=== PATIENT | male | born 1980 | race Caucasian/White ===

== ENCOUNTER → 2017-01-16 | Outpatient (CLI) | payer OTHER ==
[2017-01-16 12:35] LABS: HEMATOCRIT 41.8 % (42-52); MEAN CELL VOLUME 91.1 fL (80-100); MEAN CORPUSCULAR HEMOGLOBIN 31.6 pg (25-34); MEAN CORPUSCULAR HGB CONC 34.7 g/dl (32-36); MEAN PLATELET VOLUME 9.6 fL (7.4-10.4); PLATELET COUNT 290 K/uL (130-400); RED BLOOD COUNT 4.59 M/uL (4.7-6.1); WHITE BLOOD COUNT 4.48 K/uL (4.8-10.8)
[2017-01-16 13:14] LABS: COMPLETE YES; EOSINOPHIL % 3.5 %; LYMPH ABS # 2.02 K/uL (1.2-3.4); LYMPHOCYTE % 45.2 %; NEUTROPHILS % 29.2 %; VARIANT LYM ABS # 0.52 K/uL; VARIANT LYMPHOCYTE % 11.5 %
[2017-01-16 17:29] LABS: ALT/SGPT 50 U/L (12-78); AST/SGOT 37 U/L (15-37); BLOOD UREA NITROGEN 7 mg/dl (7-18); BUN/CREATININE RATIO 6.8 (10-20); CALCIUM 8.6 mg/dl (8.5-10.1); CARBON DIOXIDE 30 mmol/L (21-32); CHLORIDE 101 mmol/L (98-107); GLUCOSE 92 mg/dl (70-99); POTASSIUM 4.1 mmol/L (3.5-5.1); SODIUM 138 mmol/L (136-145)
[2017-01-16 17:31] LABS: ALB/GLOB RATIO 1.3 (0.9-2); ALKALINE PHOSPHATASE 50 U/L (45-117)
[2017-01-17 17:15] LABS: BEEF CLASS 0/1; CHOCOLATE CLASS 0; CHOCOLATE IGE <0.10 KU/L; CLAM CLASS 0; CLAM IGE <0.10 KU/L; CORN CLASS 0; CORN IGE <0.10 KU/L; CRAB CLASS 0; CRAB IGE <0.10 KU/L; EGG MIX CLASS 0; EGG MIX IGE <0.10 KU/L; LOBSTER CLASS 0; LOBSTER IGE <0.10 KU/L; PEANUT IGE <0.10 KU/L; PORK CLASS 0; PORK IGE <0.10 KU/L; SHRIMP CLASS 0; SOY CLASS 0; SOY IGE <0.10 KU/L; WHEAT CLASS 0; WHEAT IGE <0.10 KU/L
== END | disposition home or self-care (01) ==
LOC: C.LAB1850 11:36
PROVIDERS: ATTEND Internal Medicine Pulmonary Disease
DX: L50.1 Idiopathic urticaria (principal); L50.3 Dermatographic urticaria

== ENCOUNTER → 2017-11-19 | Outpatient (CLI) | payer OTHER | END | disposition home or self-care (01) | LOC: C.LAB 13:01 | DX: Z02.83 Encounter for blood-alcohol and blood-drug test (principal) ==